=== PATIENT | female | born 1995 | race Caucasian/White ===

== ENCOUNTER 2020-11-25 20:38 | Emergency (ER) | payer OTHER ==
[~2020-11-25] VITALS: Ht 172.7 cm; Wt 68.0 kg
[~2020-11-25 20:38] MED LIST: NEOM10DR45 EACH EAR
[2020-11-25 20:59] VITALS: BP 117/85
== END 2020-11-25 22:24 | disposition home or self-care (01) ==
LOC: ER 20:39
DX: U07.1 COVID-19 (principal); R05 Cough; F17.200 Nicotine dependence, unspecified, uncomplicated; Z86.73 Personal history of transient ischemic attack (TIA), and cerebral infarction without residual deficits; Z88.8 Allergy status to other drugs, medicaments and biological substances; Z79.2 Long term (current) use of antibiotics
CPT/HCPCS: 87635; 99283; C9803

== ENCOUNTER 2021-03-17 16:38 | Emergency (ER) | payer OTHER ==
[~2021-03-17] VITALS: Ht 172.7 cm; Wt 62.7 kg
[2021-03-17 17:22] LABS: CLARITY,URINE CLEAR (Clear); COLOR,URINE YELLOW (Yellow); GLUCOSE, URINE NEGATIVE (Neg); KETONES,URINE NEGATIVE (Neg); LEUKOCYTE ESTERASE ,URINE NEGATIVE (Neg); NITRITES, URINE NEGATIVE (Neg); OCCULT BLOOD,URINE MODERATE (Neg); PROTEIN,URINE NEGATIVE (Neg); UROBILINOGEN,URINE 0.2 E.U/dL (0.2-1.0)
[2021-03-17 17:25] LABS: UA COLLECTION TYPE CLN CATCH MIDSTREAM
[2021-03-17 17:27] LABS: BACTERIA,URINE 1+ /HPF (Neg); MUCUS STRANDS FEW /LPF (Neg); SQUAMOUS EPITHELIAL CELL,UR MANY /LPF (FEW); WBC,URINE 0-4 /HPF (0-4)
[2021-03-17 17:29] LABS: URINE HCG NEGATIVE (NEG)
[2021-03-17 17:35] LABS: BASOPHILS % (AUTO) 0.7 % (0-1); EOSINOPHILS # (AUTO) 0.1 X10'3 (0-0.9); EOSINOPHILS % (AUTO) 2.8 % (0-6); HEMATOCRIT 40.2 % (35.0-45.0); HEMOGLOBIN 13.8 g/dl (12.0-16.0); LYMPHOCYTES # (AUTO) 2.1 X10'3 (1.1-4.8); LYMPHOCYTES % (AUTO) 45.2 % (21-51); MEAN CORPUSCULAR HEMOGLOBIN 30.3 PG (27.0-31.0); MEAN CORPUSCULAR HGB CONC 34.4 g/dL (33.0-36.5); MEAN CORPUSCULAR VOLUME 88.3 FL (78-98); MEAN PLATELET VOLUME 8.4 FL (7.4-10.4); MONOCYTES # (AUTO) 0.4 X10'3 (0-0.9); NEUTROPHILS # (AUTO) 1.9 X10'3 (1.8-7.7); NEUTROPHILS % (AUTO) 42.3 % (42-75); PLATELET COUNT 229 X10'3 (140-440); RED BLOOD COUNT 4.55 X10'6 (4.20-5.60); RED CELL DISTRIBUTION WIDTH 12.2 % (11.5-14.5); WHITE BLOOD COUNT 4.6 X10'3 (4.5-11.0)
[2021-03-17 17:51] LABS: ALANINE AMINOTRANSFERASE 23 U/L (12-78); ALBUMIN 4.2 G/DL (3.4-5.0); ALBUMIN/GLOBULIN RATIO 1.1 (1.1-1.5); ALKALINE PHOSPHATASE 80 IU/L (46-116); ANION GAP 10 (8-16); ASPARTATE AMINO TRANSFERASE 16 U/L (10-37); BILIRUBIN,TOTAL 0.3 MG/DL (0.1-1.0); BLOOD UREA NITROGEN 6 MG/DL (7-18); BUN/CREATININE RATIO 7.2 (6.6-38.0); CALCIUM 8.7 MG/DL (8.5-10.1); CHLORIDE 104 MMOL/L (99-107); CREATININE 0.83 MG/DL (0.40-0.90); GLUCOSE 91 MG/DL (70-104); POTASSIUM 3.8 MMOL/L (3.5-5.1); SODIUM 139 MMOL/L (135-145); TOTAL CARBON DIOXIDE 25.2 MMOL/L (24-32); TOTAL PROTEIN 7.9 G/DL (6.4-8.2); eGFR 84 ML/MIN
[2021-03-17] MEDS ORDERED: SUMAtriptan succ. 6 MG/0.5ml vial SQ ONE (20:30)
[2021-03-17] MEDS ORDERED: ketorolac tromethamine 15mg/ml inj. IV ONE (20:30)
[2021-03-17] MEDS ORDERED: normal saline 1000ML IV soln IVB ONE (20:30)
[2021-03-17] MEDS ORDERED: proCHLORperazine 10 MG/2 ml inj IV ONE (20:30)
[2021-03-17] MEDS ORDERED: ketorolac trometh. 30mg/ml inj. IV ONE (20:50)
[2021-03-17 21:36] VITALS: BP 113/71
== END 2021-03-17 21:43 | disposition home or self-care (01) ==
LOC: ER 16:38
DX: G43.909 Migraine, unspecified, not intractable, without status migrainosus (principal); Z88.5 Allergy status to narcotic agent
CPT/HCPCS: 36415; 80053; 81001; 81025; 85025; 96361; 96372; 96374; 96375; 99284; J0780; J1885; J3030; J7030

== ENCOUNTER 2021-03-20 17:33 | Emergency (ER) | payer OTHER ==
[~2021-03-20] VITALS: Ht 172.7 cm; Wt 65.9 kg
[2021-03-20 17:59] VITALS: BP 116/72
[2021-03-20] MEDS ORDERED: SUMAtriptan 25 MG tablet PO ONE (22:10)
[2021-03-20] MEDS ORDERED: ondansetron 4mg rapidly disintigrating tab PO ONE (22:10)
[2021-03-20] MEDS ORDERED: ONDA8TAB13 PO (22:14)
[2021-03-20] MEDS ORDERED: SUMA50TA PO (22:14)
== END 2021-03-20 22:25 | disposition home or self-care (01) ==
LOC: ER 17:34
DX: G43.909 Migraine, unspecified, not intractable, without status migrainosus (principal); Z88.5 Allergy status to narcotic agent; Z79.899 Other long term (current) drug therapy
CPT/HCPCS: 99283

== ENCOUNTER 2021-04-14 11:32 | Emergency (ER) | payer OTHER ==
[~2021-04-14] VITALS: Ht 170.2 cm; Wt 66.8 kg
[~2021-04-14 11:32] MED LIST changes: +ONDA8TAB13 PO; +SUMA50TA PO
[2021-04-14 11:59] VITALS: BP 132/95
[2021-04-14] MEDS ORDERED: CYCL-1 PO (15:37)
[2021-04-14] MEDS ORDERED: diazepam 5mg tablet PO ONE (15:40)
== END 2021-04-14 16:39 | disposition home or self-care (01) ==
LOC: ER 11:33
DX: F41.9 Anxiety disorder, unspecified (principal); M54.2 Cervicalgia; M25.511 Pain in right shoulder; R07.89 Other chest pain; G43.909 Migraine, unspecified, not intractable, without status migrainosus; Z86.73 Personal history of transient ischemic attack (TIA), and cerebral infarction without residual deficits; Z88.8 Allergy status to other drugs, medicaments and biological substances; Z79.899 Other long term (current) drug therapy
CPT/HCPCS: 93005; 99283

== ENCOUNTER 2023-10-30 20:32 | Emergency (ER) | payer BC, OTHER ==
[~2023-10-30] VITALS: Ht 175.3 cm; Wt 77.0 kg
[~2023-10-30 20:32] MED LIST changes: +CYCL-1 PO; +ONDA-245 PO; -ONDA8TAB13 PO; -SUMA50TA PO
[2023-10-30 20:45] VITALS: BP 126/89; PULSE 106; TEMP 98.3; O2SAT 100
[2023-10-30 21:26] VITALS: RESP 18
== END 2023-10-30 21:28 | disposition home or self-care (01) ==
LOC: ER 20:33
DX: I95.9 Hypotension, unspecified (principal); R42 Dizziness and giddiness; G43.909 Migraine, unspecified, not intractable, without status migrainosus; Z88.8 Allergy status to other drugs, medicaments and biological substances; Z79.899 Other long term (current) drug therapy; Z86.73 Personal history of transient ischemic attack (TIA), and cerebral infarction without residual deficits
CPT/HCPCS: 99281